=== PATIENT | female | born 1985 | race Caucasian/White ===

== ENCOUNTER 2018-01-27 11:55 | Emergency (ER) ==
[2018-01-27 12:00] VITALS: BP 126/82; TEMP 98.7; BMI 22.6
--- NOTE | 2018-01-27 12:24 | ED.PDOC ---
General ED Provider: Dr. 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 Was twisting cap off syringe with needle attached and accidently stuck herself with contaminated needle)(lt 2nd finger). State was 30 g needle. Immediately cleaned surface. No significant Bleeding. Time Seen by Physician: 12:10 Mode of Arrival: Walk-In Information Source: Patient Exam Limitations: No limitations Primary Care Provider: JAYLA VIEIRA Referred to ED by: Other (OR) Nursing and Triage Documentation Reviewed and Agree: Yes Does patient meet sepsis criteria?: No System Inflammatory Response Syndrome: Not Applicable Sepsis Protocol: For patient's 13 years and over: Temp is 96.8 and below OR 101 and greater Pulse >90 BPM Resp >20/minute Acutely Altered Mental Status Are patient's symptoms suggestive of a new infection, such as: -Pneumonia -Skin, Soft Tissue -Endocarditis -UTI -Bone, Joint Infection -Implantable Device -Acute Abdominal Infection -Wound Infection -Meningitis -Blood Stream Catheter Infection -Unknown Miscellaneous Complaint Exam - Needlestick/Body Fluid Exposure Exam Patient Complains of: Needlestick Contamination: Compromised skin Date of Incident: 01/27/2018 Time of Incident: This AM Job Performing at Time of Incident: uncapping needle Needlestick: Reports: Hollow needle, Other (Contaminated) Bleeding at Site: No Treatment Prior to Arrival: Cleaned wound Prior Hepatitis B Vaccine: Yes Source Information: Denies: HIV, Hepatitis Needlestick Risk Factors-Low Risk: Present: Solid needle, Superficial scratch, Short duration, Source asymptomatic Serologic Testing (HIV/HBV) Declined By Patient: No Findings: Present: Dry puncture wound. Absent: Bloody puncture wound Differential Diagnoses: Needlestick, Body Fluid Exposure, Exposure Risk Low Review of Systems - Review Of Systems Constitutional: Reports: No symptoms Eyes: Reports: No symptoms Ears, Nose, Mouth, Throat: Reports: No symptoms Respiratory: Reports: No symptoms Cardiac: Reports: No symptoms GI: Reports: No symptoms : Reports: No symptoms Musculoskeletal: Reports: No symptoms Skin: Reports: No symptoms Neurological: Reports: No symptoms Endocrine: Reports: No symptoms Hematologic/Lymphatic: Reports: No symptoms All Other Systems: Reviewed and Negative Past Medical History - Past Medical History Previously Healthy: Yes Endocrine: Reports: None Cardiovascular: Reports: None Respiratory: Reports: None Hematological: Reports: None Gastrointestinal: Reports: None Genitourinary: Reports: None Neuro/Psych: Reports: None Musculoskeletal: Reports: None Cancer: Reports: None Last Menstrual Period: NOW - Surgical History General Surgical History: Reports: None - Family History Family History: Reports: None - Social History Smoking Status: Never smoker Hx Substance Use: No Alcohol Screening: None - Immunizations Tetanus Shot up to Date: Yes Physical Exam - Physical Exam Appearance: Well-appearing, No pain distress, Well-nourished Ill-appearing: None Pain Distress: None Eyes: GABE, EOMI, Conjunctiva clear ENT: Ears normal, Nose normal, Oropharynx normal Respiratory: Airway patent, Breath sounds clear, Breath sounds equal, Respirations nonlabored Cardiovascular: RRR, Pulses normal, No rub, No murmur GI/: Soft Musculoskeletal: Normal strength Skin: Warm Neurological: Sensation intact, Motor intact, Cranial nerves intact, Alert, Oriented Psychiatric: Affect appropriate, Mood appropriate Critical Care Note - Critical Care Note Total Time (mins): 0 Course - Course Orders, Labs, Meds: Lab Review 01/27/18 12:55 Miscellaneous Test Orders Category Date Time Status MISCELLANEOUS SEND OUT Stat LAB 01/27/18 12:55 Completed Ketorolac Tromethamine [Toradol] MEDS 01/27/18 12:27 Discontinued 30 mg IM ONCE STA Medications Discontinued Medications Generic Name Dose Route Start Last Admin Trade Name Alexiq PRN Reason Stop Dose Admin Ketorolac Tromethamine 30 mg 01/27/18 12:27 Toradol IM 01/27/18 12:28 ONCE STA Vital Signs: Temp Pulse Resp BP Pulse Ox 01/27/18 11:56 98.7 F 87 20 126/82 99 Departure - Departure Time of Disposition: 13:05 Disposition: PLACED OBSERVATION Discharge Problem: Needle stick injury of finger of left hand Instructions: Body Substance Exposure (ED) Condition: Good Pt referred to PMD for follow-up: Yes IPMP verified?: No Additional Instructions: follow up as directed Allergies/Adverse Reactions: Allergies Penicillins Adverse Reaction (Verified 01/27/18 12:00) Home Medications: Ambulatory Orders Multivitamin 1 cap PO DAILY 01/27/18 Disposition Discussed With: Patient, Other (hospital infectious disease nurse) Additional Comments Additional Comments: Discussed case with hospital ID nurse; Stated they would contact patient to discusse results and wheter or not she wished to pursue PEP treatment.
[2018-01-27] MEDS ORDERED: TORADOL IM STA (12:27)
== END 2018-01-27 13:22 | disposition admitted as inpatient to this hospital (09) ==
LOC: ED 11:55
DX: S61.231A Puncture wound without foreign body of left index finger without damage to nail, initial encounter (principal); W46.1XXA Contact with contaminated hypodermic needle, initial encounter
CPT/HCPCS: 36415; 99283